=== PATIENT | female | born 1970 | race Caucasian/White ===

== ENCOUNTER 2021-05-06 00:42 | Day surgery (SDC) | payer BC, SELFPAY ==
[2021-04-29 10:04] VITALS: BMI 23.3
--- NOTE | 2021-04-29 10:16 | PC.NURSE ---
Report to the Outpatient Waiting Room, entrance under the green pavilion located off [facility], at time 0630 on date 05/06/21. OR Time: 0830. - You will be asked a series of questions to screen for COVID 19 for your protection. - A mask is required within the hospital. - No visitors are allowed at this time. Preoperative COVID Testing Requirements: No COVID Test needed if: (proof is required; if not received patient will have Rapid Test prior to entry) - Patient has received COVID Vaccine at least 14 days prior to procedure date or - Patient has positive COVID test result within last 90 days of surgery date. COVID Test needed if above criteria is not met Patients may have clear liquids (water, carbonated beverages, clear teas, apple juice) until 3 hours prior to surgery with a maximum of 20 ounces. - No food from midnight until time of surgery Take the following medications with a SIP of water the morning of surgery: AZATHIOPRINE, TOPAMAX Medications to discontinue per physician: VITAMINS/SUPPLEMENTS Date to take last dose: 05/02/21 Please no make-up, nail citizen of [place], hairspray, perfume, deodorant, or body powder the day of surgery. No jewelry (including any body piercings) or valuables the day of surgery, leave them at home. Please take a shower or bath the night before, or the morning of, surgery with an antibacterial soap. Wear comfortable, loose fitting clothing. - Jewelry must be removed prior to entering the operating room. Rings and piercings that are not removed may be cut off. - The hospital will not accept responsibility for valuables. - Please leave all valuables, including medications, at home the day of surgery. If you are going home after surgery, a licensed emergency detail driver must drive you home. - NO public transportation without another adult. - We recommend that an adult stay with you for 24 hours following discharge. - We also recommend that you do not drive, make important decision, drink alcoholic beverages, or take any drugs that were not prescribed by your health care provider for at least 24 hours after your discharge time. Follow any additional instructions given to you from your surgeon. Telephone instructions given to GRIFFIN ATWOOD and asked if any additional questions and then verbalized understanding. Patient advised to call surgeon office or pre surgery nurse liaison [phone] if any additional questions.
[2021-05-06] MEDS: LACTATED RINGERS 1,000 ML 30 ML IV CONT (06:57)
[2021-05-06] MEDS: ACETAMINOPHEN 500 MG TABLET 1000 MG PO (06:57)
--- NOTE | 2021-05-06 07:01 | P.PNAN_ITS ---
Anes - Initial Pre Proc Eval Procedure: Operation Date: 05/06/21 08:30 Proposed Procedures p Hysteroscopy with Dilation and Curettage - Nerissa Martines MD Date/Time: 05/06/21 07:01 Surgeon: Nerissa Martines MD Pre Op Diagnosis: Post Menopausal Bleeding Patient Data Age: 50 Gender: F Height: 1.75 m Weight: 71 kg Allergies Allergy/AdvReac Type Severity Reaction Status Date / Time Sulfa (Sulfonamide Allergy Rash Verified 05/06/21 06:31 Antibiotics) Home Medications Medication Instructions Recorded Confirmed Type L.acidoph,rhamn-B.breve,longum 1 cap PO DAILY 04/29/21 04/29/21 History [Probiotic] azathioprine 50 mg PO TID 04/29/21 04/29/21 History calcium 500 mg PO DAILY 04/29/21 04/29/21 History cetirizine [Zyrtec] 10 mg PO DAILY 04/29/21 04/29/21 History conjugated estrogens [Premarin] 0.45 mg PO DAILY 04/29/21 04/29/21 History ergocalciferol (vitamin D2) 10 mcg PO DAILY 04/29/21 04/29/21 History [Vitamin D2] escitalopram oxalate [Lexapro] 10 mg PO HS 04/29/21 04/29/21 History esomeprazole magnesium [Nexium] 40 mg PO DAILY 04/29/21 04/29/21 History magnesium 15 mg PO DAILY 04/29/21 04/29/21 History progesterone micronized 100 mg PO DAILY 04/29/21 04/29/21 History topiramate [Topamax] 25 mg PO BID 04/29/21 04/29/21 History Patient hx anesthesia problems: none Family hx anesthesia problems: none Results Review: All pre-operative results and documents have been reviewed as part of the pre-operative evaluation. [facility] Past Medical History Medical History (Updated 05/06/21 @ 07:02 by Reed Aguilar MD) Anxiety Post-menopause bleeding Ulcerative colitis Surgical History Surgical History (Updated 05/06/21 @ 07:02 by Reed Aguilar MD) H/O arthroscopic knee surgery History of D&C Hx of tonsillectomy Social History Social History Smoking packs per day: 0.5 Smoking cigarettes per day: 10.0 Years smoked: 20 Smoking pack-years: 10.00 Smoking status: Former smoker Tobacco type: cigarettes Smoking end date: 03/30/04 Alcohol intake: current Drinks per week: 4 Substance use: never Substance use type: does not use Living arrangements: alone Spiritual care concerns: No Anes - Eval Final PreProcedure Day of Procedure 05/06/21 07:01 Patient weight: normal Heart: regular rate and rhythm Lungs: clear to auscultation Airway: Mallampati scale class II Neurological: alert and oriented Last oral intake: >/= 8 hours ASA classification: II Emergent: no Anesthetic plan: proceed Anesthesia type and monitoring: general GIVS and standard monitoring Results Review: All pre-operative results and documents have been reviewed as part of the pre-operative evaluation. Informed Consent: The patient's anesthetic plan and its attendant risks and benefits were discussed with the patient/family/POA. Questions were solicited and answers provided to the satisfaction of the patient/family/POA.
[2021-05-06 07:05] VITALS: BP 123/77; PULSE 87; RESP 16; TEMP 36.9; O2SAT 100
--- NOTE | 2021-05-06 07:23 | WPDHPUPDATE1 ---
History and Physical Update Update Date/Time: 05/06/21 07:23 History and Physical has been reviewed, including an updated exam of the patient. There are NO changes in the patient's condition. Risks, benefits, and alternatives have been discussed and questions answered. Patient agrees to proceed with procedure.
--- NOTE | 2021-05-06 07:23 | PM.HPGS ---
History of Present Illness History of Present Illness Consent: Risks, benefits, and alternatives have been discussed and questions answered. Patient agrees to proceed with procedure. Chief complaint: Post Menopausal Bleeding Narrative: Mariam Torres is a 50 year old female who is 18 months postmenopausal. She had an episode of spotting in early March. And an episode of heavier bleeding this past week. Pelvic ultrasound was performed and revealed a slightly thickened endometrium at 5mm. It was recommended to proceed with D&C hysteroscopy. Risks of infection, bleeding, and perforation were reviewed. Patient voiced understanding and agrees to proceed. Review of Systems Review of Systems: not repeated day of surgery; patient states no changes in status PMFSH Past Medical History Medical History (Updated 05/06/21 @ 07:26 by Nerissa Martines MD) Anxiety Interstitial cystitis (normal spontaneous vaginal delivery) Post-menopause bleeding Ulcerative colitis Surgical History Surgical History (Updated 05/06/21 @ 07:25 by Nerissa Martines MD) H/O arthroscopic knee surgery History of D&C With hysteroscopy in September of 2019 Hx of tonsillectomy Social History Social History Smoking packs per day: 0.5 Smoking cigarettes per day: 10.0 Years smoked: 20 Smoking pack-years: 10.00 Smoking status: Former smoker Tobacco type: cigarettes Smoking end date: 03/30/04 Alcohol intake: current Drinks per week: 4 Substance use: never Substance use type: does not use Living arrangements: alone Spiritual care concerns: No Meds Home Medications and Allergies Home Medications Medication Instructions Recorded Confirmed Type L.acidoph,rhamn-B.breve,longum 1 cap PO DAILY 04/29/21 04/29/21 History [Probiotic] azathioprine 50 mg PO TID 04/29/21 04/29/21 History calcium 500 mg PO DAILY 04/29/21 04/29/21 History cetirizine [Zyrtec] 10 mg PO DAILY 04/29/21 04/29/21 History conjugated estrogens [Premarin] 0.45 mg PO DAILY 04/29/21 04/29/21 History ergocalciferol (vitamin D2) 10 mcg PO DAILY 04/29/21 04/29/21 History [Vitamin D2] escitalopram oxalate [Lexapro] 10 mg PO HS 04/29/21 04/29/21 History esomeprazole magnesium [Nexium] 40 mg PO DAILY 04/29/21 04/29/21 History magnesium 15 mg PO DAILY 04/29/21 04/29/21 History progesterone micronized 100 mg PO DAILY 04/29/21 04/29/21 History topiramate [Topamax] 25 mg PO BID 04/29/21 04/29/21 History Allergies Allergy/AdvReac Type Severity Reaction Status Date / Time Sulfa (Sulfonamide Allergy Rash Verified 05/06/21 06:31 Antibiotics) Vital Signs Vital Signs - 24 hr 05/06/21 07:05 Temperature 98.4 F Pulse Rate 87 Respiratory Rate 16 Blood Pressure 123/77 Pulse Oximetry 100 Exam Const: General: healthy appearing and alert Orientation/consciousness: patient oriented x3 GI: GI Palp: Yes Soft to palpation, No Tenderness to palpation present (GI) and No Palpable mass present : External Female Exam: normal external appearance Speculum Exam - Vagina: normal appearance of the vagina and normal vaginal discharge Speculum Exam - Cervix: normal appearance of the cervix Bimanual exam- vagina & uterus: uterine size normal and consistency normal Bimanual Exam- Adnexa, other: normal adnexae and No adnexal tenderness Neuro: General: patient oriented x3 Assessment and Plan Assessment and plan (1) Post-menopause bleeding: Code(s): N95.0 - Postmenopausal bleeding Status: Inactive Assessment and Plan: Plan to proceed with D&C hysteroscopy
[2021-05-06] MEDS: ONDANSETRON INJ 4 MG/2 ML VIAL IV PUSH (07:25)
[2021-05-06] MEDS: SCOPOLAMINE 1.5 MG PATCH TRANSDERM (07:26)
[2021-05-06] MEDS: KETOROLAC 30 MG/ML VIAL (*BKC) IV PUSH (08:32)
[2021-05-06 08:44] VITALS: BP 94/59; PULSE 85; RESP 12; O2SAT 96
--- NOTE | 2021-05-06 08:44 | W.PM.PROC2 ---
Procedure Note - Detailed Date of Procedure 05/06/21 Pre-op Diagnosis Post Menopausal Bleeding Post-op Diagnosis same Procedure Performed D&C hysteroscopy with MyoSure resection of polyps Surgeon Nerissa Martines MD Anesthesia MAC and local Findings The cervix has a very large ectropion that bleeds easily. Uterus sounds to 9cm. There are 3 polyps noted. Description of Procedure The patient was taken to the operating room and placed under anesthesia in the dorsal lithotomy position. She was prepped and draped in the usual sterile fashion. The bivalve speculum was placed in the vagina and the cervix grasped on the anterior lip with a tenaculum. The cervix is injected in each quadrant with 1% lidocaine. The uterus is sounded to 9cm. The cervix is serially dilated with Hegar to an 8. The diagnostic hysteroscope was placed. Three polyps are noted therefore the MyoSure device is opened and placed. Under direct visualization all 3 polyps are removed in their entirety. The hysteroscope was removed and the medium sharp curette used to sharply curette the endometrium until a good uterine cry was noted in all areas. All instruments are removed except the speculum. The tenaculum side is bleeding significantly. Silver nitrate and pressure was applied with a decrease in bleeding. Due to continued bleeding from the site Monsel's solution is applied. Good hemostasis was then noted. All instruments are then removed. Patient is awakened from anesthesia and taken to recovery in stable condition. Sponge, needle, and instrument counts are correct per the OR staff. Estimated Blood Loss 50 Drains No Packing No Pathology yes (Endometrial shavings and curettings) Complications No immediate complications Condition stable Disposition PACU
[2021-05-06 09:20] VITALS: BP 88/64; PULSE 69; RESP 16
[2021-05-06] MEDS: oxyCODONE HCL (*CRX) 5 MG TAB IR PO (09:33)
[2021-05-06 09:50] VITALS: BP 98/63
== END 2021-05-06 10:40 | disposition home or self-care (01) ==
PROVIDERS: PCP Physician Assistant; Visit Provider Obstetrics & Gynecology Gynecology
PROC: 0U5B8ZZ Destruction of Endometrium, Via Natural or Artificial Opening Endoscopic (ICD-10-PCS; CPT 58563; principal; 2021-05-06 08:30)
DX: N95.0 Postmenopausal bleeding (principal); N84.0 Polyp of corpus uteri; Z87.891 Personal history of nicotine dependence; F41.9 Anxiety disorder, unspecified
CPT/HCPCS: 58558; 88305; 88313; A9270; J1100; J1885; J2250; J2405; J2704; J3010; J7030; J7120

== ENCOUNTER 2022-05-19 00:31 | Day surgery (SDC) | payer BC, SELFPAY ==
[2022-05-12 12:39] VITALS: BMI 24.3
--- NOTE | 2022-05-12 12:45 | PC.NURSE ---
Report to the Outpatient Waiting Room, entrance under the green pavilion located off [facility], at time 0915 on date 05/19/22. Planned Procedure Time: 1115. Time changes happen often and if your time is changed the preop area will call you the afternoon before. - You and your visitor will be asked to self-screen and do not enter if you have any COVID symptoms. - Only one visitor is requested with a max of two and NO children visitors are allowed at this time. - The patient visitor may be requested to leave or wait in car when not with patient due to distancing restrictions. - A mask is optional within the hospital at this time. Patients may have clear liquids (water, carbonated beverages, clear teas, apple juice) until 3 hours prior to surgery with a maximum of 20 ounces. - No food from midnight until time of surgery Take the following medications with a SIP of water the morning of surgery: TOPAMAX DO NOT STOP ANY OF YOUR OTHER PRESCRIPTION MEDICATIONS PRIOR TO SURGERY EXCEPT THE FOLLOWING Medications to discontinue per physician: VITAMINS/SUPPLEMENTS Date to take last dose: 05/15/22 Please no make-up, nail [place], hairspray, perfume, deodorant, or body powder the day of surgery. No jewelry (including any body piercings) or valuables the day of surgery, leave them at home. Please take a shower or bath the night before, or the morning of, surgery with an antibacterial soap. Wear comfortable, loose fitting clothing. - Jewelry must be removed prior to entering the operating room. Rings and piercings that are not removed may be cut off. - The hospital will not accept responsibility for valuables. - Please leave all valuables, including medications, at home the day of surgery. If you are going home after surgery, a licensed garbage collector driver must drive you home. - NO public transportation without another adult if you receive anesthesia. - We recommend that an adult stay with you for 24 hours following discharge. - We also recommend that you do not drive, make important decision, drink alcoholic beverages, or take any drugs that were not prescribed by your health care provider for at least 24 hours after your discharge time. ` Follow any additional instructions given to you from your surgeon. If you or anyone in your household have experienced Covid symptoms in the past week, please notify your surgeon or the nurse liaison at the phone number below for possible testing. Telephone instructions given to PT - GRIFFIN ATWOOD and asked if any additional questions and then verbalized understanding. Patient advised to call surgeon office or pre surgery nurse liaison [phone] if any additional questions.
--- NOTE | 2022-05-19 08:35 | WPDHPUPDATE1 ---
History and Physical Update Update Date/Time: 05/19/22 08:35 History and Physical has been reviewed, including an updated exam of the patient. There are NO changes in the patient's condition. Risks, benefits, and alternatives have been discussed and questions answered. Patient agrees to proceed with procedure.
--- NOTE | 2022-05-19 08:35 | PM.HPGS ---
History of Present Illness History of Present Illness Consent: Risks, benefits, and alternatives have been discussed and questions answered. Patient agrees to proceed with procedure. Chief complaint: post menopausal bleeding Narrative: Mariam Torres is a 51 year old female with spotting on and off. Patient with a known history of polyps on previous hysteroscopy. It was recommended to proceed with D&C hysteroscopy. Risks of infection, bleeding, perforation, and possible pathology. The patient voices understanding and agrees to proceed. Review of Systems Review of Systems: not repeated day of surgery; patient states no changes in status [facility] Past Medical History Medical History (Updated 05/19/22 @ 08:38 by Nerissa Martines MD) Anxiety Interstitial cystitis (normal spontaneous vaginal delivery) Ulcerative colitis Surgical History Surgical History (Updated 05/19/22 @ 08:38 by Nerissa Martines MD) H/O arthroscopic knee surgery History of D&C With hysteroscopy in September of 2019 & April of 2021 polyps removed Hx of tonsillectomy Social History Social History Smoking packs per day: 0.5 Smoking cigarettes per day: 10.0 Years smoked: 20 Smoking pack-years: 10.00 Smoking status: Never smoker Tobacco type: cigarettes Smoking end date: 03/30/04 Alcohol intake: current Drinks per week: 3 Substance use: never Substance use type: does not use Living arrangements: alone Spiritual care concerns: No Meds Home Medications and Allergies Home Medications Medication Instructions Recorded Confirmed Type L.acidophil,rhamnosus-B.breve,longum 1 cap PO DAILY 04/29/21 05/12/22 History 20 billion cell sprinkle capsule (Probiotic) calcium 500 mg tablet 500 mg PO DAILY 04/29/21 05/12/22 History cetirizine 10 mg tablet (Zyrtec) 10 mg PO DAILY 04/29/21 05/12/22 History conjugated estrogens 0.45 mg 0.45 mg PO DAILY 04/29/21 05/12/22 History tablet (Premarin) ergocalciferol (vitamin D2) 400 10 mcg PO DAILY 04/29/21 05/12/22 History unit capsule escitalopram oxalate 10 mg tablet 10 mg PO HS 04/29/21 05/12/22 History (Lexapro) esomeprazole magnesium 40 mg 40 mg PO DAILY 04/29/21 05/12/22 History capsule,delayed release (Nexium) magnesium 500 mg tablet 15 mg PO DAILY 04/29/21 05/12/22 History progesterone micronized 100 mg 100 mg PO DAILY 04/29/21 05/12/22 History capsule topiramate 25 mg tablet (Topamax) 25 mg PO BID 04/29/21 05/12/22 History ferrous sulfate 325 mg (65 mg 325 mg PO DAILY 05/12/22 05/12/22 History iron) tablet (FeroSul) mesalamine 1.2 gram tablet,delayed 4.8 g PO DAILY 05/12/22 05/12/22 History release riboflavin (vitamin B2) 100 mg 200 mg PO DAILY 05/12/22 05/12/22 History tablet Allergies Allergy/AdvReac Type Severity Reaction Status Date / Time Sulfa (Sulfonamide Allergy Rash Verified 05/12/22 12:35 Antibiotics) Exam Const: General: healthy appearing and alert Orientation/consciousness: patient oriented x3 Resp: Effort & Inspection: normal respiratory effort GI: GI Palp: Yes Soft to palpation, No Tenderness to palpation present (GI) and No Palpable mass present : External Female Exam: normal external appearance Speculum Exam - Vagina: normal appearance of the vagina and normal vaginal discharge Speculum Exam - Cervix: normal appearance of the cervix Bimanual exam- vagina & uterus: uterine size normal and consistency normal Bimanual Exam- Adnexa, other: normal adnexae and No adnexal tenderness Neuro: General: patient oriented x3 Assessment and Plan Assessment and plan (1) Post-menopause bleeding: Code(s): N95.0 - Postmenopausal bleeding Status: Acute Assessment and Plan: plan to proceed with D&C hysteroscopy
--- NOTE | 2022-05-19 09:33 | WPDANESEPPF ---
Anes - Initial Pre Proc Eval Procedure: Operation Date: 05/19/22 11:15 Proposed Procedures p Hysteroscopy, Dilation and Curettage - Nerissa Martines MD Date/Time: 05/19/22 09:33 Surgeon: Nerissa Martines MD Pre Op Diagnosis: post menopausal bleeding Patient Data Age: 51 Gender: F Height: 1.75 m Weight: 74.85 kg Allergies Allergy/AdvReac Type Severity Reaction Status Date / Time Sulfa (Sulfonamide Allergy Rash Verified 05/12/22 12:35 Antibiotics) Home Medications Medication Instructions Recorded Confirmed Type L.acidophil,rhamnosus-B.breve,longum 1 cap PO DAILY 04/29/21 05/12/22 History 20 billion cell sprinkle capsule (Probiotic) calcium 500 mg tablet 500 mg PO DAILY 04/29/21 05/12/22 History cetirizine 10 mg tablet (Zyrtec) 10 mg PO DAILY 04/29/21 05/12/22 History conjugated estrogens 0.45 mg 0.45 mg PO DAILY 04/29/21 05/12/22 History tablet (Premarin) ergocalciferol (vitamin D2) 400 10 mcg PO DAILY 04/29/21 05/12/22 History unit capsule escitalopram oxalate 10 mg tablet 10 mg PO HS 04/29/21 05/12/22 History (Lexapro) esomeprazole magnesium 40 mg 40 mg PO DAILY 04/29/21 05/12/22 History capsule,delayed release (Nexium) magnesium 500 mg tablet 15 mg PO DAILY 04/29/21 05/12/22 History progesterone micronized 100 mg 100 mg PO DAILY 04/29/21 05/12/22 History capsule topiramate 25 mg tablet (Topamax) 25 mg PO BID 04/29/21 05/12/22 History ferrous sulfate 325 mg (65 mg 325 mg PO DAILY 05/12/22 05/12/22 History iron) tablet (FeroSul) mesalamine 1.2 gram tablet,delayed 4.8 g PO DAILY 05/12/22 05/12/22 History release riboflavin (vitamin B2) 100 mg 200 mg PO DAILY 05/12/22 05/12/22 History tablet Patient hx anesthesia problems: none Family hx anesthesia problems: none Results Review: All pre-operative results and documents have been reviewed as part of the pre-operative evaluation. PMFSH Past Medical History Medical History Anxiety Interstitial cystitis (normal spontaneous vaginal delivery) Ulcerative colitis Surgical History Surgical History (Updated 05/19/22 @ 08:38 by Nerissa Martines MD) H/O arthroscopic knee surgery History of D&C With hysteroscopy in September of 2019 & April of 2021 polyps removed Hx of tonsillectomy Social History Social History (Updated 05/19/22 @ 09:33 by Reed Aguilar MD) Smoking packs per day: 0.5 Smoking cigarettes per day: 10.0 Years smoked: 20 Smoking pack-years: 10.00 Smoking status: Former smoker Tobacco type: cigarettes Smoking end date: 03/30/04 Alcohol intake: current Drinks per week: 3 Substance use: never Substance use type: does not use Living arrangements: alone Spiritual care concerns: No Anes - Eval Final PreProcedure Day of Procedure 05/19/22 09:33 Patient weight: normal Heart: regular rate and rhythm Lungs: clear to auscultation Airway: Mallampati scale class II Neurological: alert and oriented Last oral intake: >/= 8 hours ASA classification: II Emergent: no Anesthetic plan: proceed Anesthesia type and monitoring: general GIVS and standard monitoring Results Review: All pre-operative results and documents have been reviewed as part of the pre-operative evaluation. Informed Consent: The patient's anesthetic plan and its attendant risks and benefits were discussed with the patient/family/POA. Questions were solicited and answers provided to the satisfaction of the patient/family/POA.
[2022-05-19] MEDS: ACETAMINOPHEN 500 MG TABLET 1000 MG PO (09:45)
[2022-05-19] MEDS: LACTATED RINGERS 1,000 ML 30 ML IV CONT (10:00)
[2022-05-19] MEDS: ONDANSETRON INJ 4 MG/2 ML VIAL IV PUSH (10:05)
[2022-05-19] MEDS: FAMOTIDINE 20 MG/2 ML VIAL IV PUSH (10:05)
[2022-05-19 10:08] VITALS: BP 128/77; PULSE 93; RESP 14; TEMP 36.8; O2SAT 100
[2022-05-19] MEDS: KETOROLAC 30 MG/ML VIAL (*BKC) IV PUSH (10:55)
[2022-05-19] MEDS: LIDOCAINE 1% BUFFERED WITH 8.4% SODIUM BICARB 1 ML SYRINGE 10 ML INFILTRATE (10:56)
--- NOTE | 2022-05-19 11:03 | W.PM.PROC2 ---
Procedure Note - Detailed Date of Procedure 05/19/22 Pre-op Diagnosis post menopausal bleeding Post-op Diagnosis Same Procedure Performed D&C hysteroscopy Surgeon Nerissa Martines MD Anesthesia MAC and Local Findings uterus sounds to 10cm and appears thickened throughout Description of Procedure The patient is taken to the operating room and placed under anesthesia in the dorsal lithotomy position. She was prepped and draped in usual sterile fashion. Plessis speculum was placed in the vagina and the cervix grasped on the anterior lip with a tenaculum. Cervix is injected in each quadrant with 1% lidocaine. The uterus is sounded to 10cm. The hysteroscope was placed with the above-stated findings. The small sharp curette is used to curette the endometrium until a good uterine cry was noted in all areas. All instruments were then removed. Sponge, needle, and instrument counts are correct per the OR staff. Patient was awakened from anesthesia taken to recovery in stable condition. Estimated Blood Loss 5 Drains No Packing No Pathology Yes ( Endometrial curettings) Complications No immediate complications Condition Stable Disposition PACU
[2022-05-19 11:10] VITALS: BP 121/71; PULSE 82; RESP 18; O2SAT 100
[2022-05-19] MEDS: oxyCODONE HCL (*CRX) 5 MG TAB IR PO (11:33)
[2022-05-19 11:40] VITALS: BP 107/64; PULSE 80; RESP 18
== END 2022-05-19 12:30 | disposition home or self-care (01) ==
PROVIDERS: PCP Physician Assistant; Visit Provider Obstetrics & Gynecology Gynecology
PROC: 0U5B8ZZ Destruction of Endometrium, Via Natural or Artificial Opening Endoscopic (ICD-10-PCS; CPT 58563; principal; 2022-05-19 11:15)
DX: N95.0 Postmenopausal bleeding (principal); F41.9 Anxiety disorder, unspecified; K51.90 Ulcerative colitis, unspecified, without complications; Z87.891 Personal history of nicotine dependence
CPT/HCPCS: 58558; 88305; A9270; J1100; J1885; J2250; J2405; J2704; J3010; J7120